=== PATIENT | male | born 1995 | race Two or more races ===

== ENCOUNTER → 2022-11-09 | Outpatient (CLI) | payer MEDICAID ==
[2022-11-10 08:07] LABS: RPR Non Reactive (Non Reactive)
== END | disposition home or self-care (01) ==
LOC: LAB 10:03
PROVIDERS: ATTEND Nurse Practitioner Family
DX: Z11.3 Encounter for screening for infections with a predominantly sexual mode of transmission (principal); Z20.2 Contact with and (suspected) exposure to infections with a predominantly sexual mode of transmission
CPT/HCPCS: 86592; 86703